=== PATIENT | female | born 1990 | race Caucasian/White ===

== ENCOUNTER 2016-11-07 22:30 | Emergency (ER) | payer OTHER ==
--- NOTE | 2016-11-07 22:50 | ED CLINICAL REPORT ---
Clinical Report - Physicians/Mid Levels [facility] [address] [place] [address] 11/07/2016 22:32 Patient: RICARDA OLIVARES Time Seen: 22:44; initial patient contact, initial documentation, patient care assumed. Arrived- By ambulance. Historian- patient. HISTORY OF PRESENT ILLNESS Chief Complaint: PRESCRIPTION REFILL REQUEST. This started about 2 days ago. No current or associated symptoms. (says she needs refill of her gabapentin, and that she takes that for psychosis problems, ran out x2 days ago). Similar symptoms previously: None. Recent medical care: Not recently seen/assessed. REVIEW OF SYSTEMS No fever, difficulty breathing, chest pain or abdominal pain. All systems otherwise negative, except as recorded above. PAST HISTORY See nurses notes. PROBLEMS: Paranoid schizophrenia. --22:42 Page-Jackson Soto R.N. ADDITIONAL SURGERIES: no known surgeries. SOCIAL HISTORY Light tobacco smoker. History of heavy IV drug use: heroin, methamphetamines. No alcohol use. No recent travel. Is a local resident. FAMILY HISTORY Negative. ADDITIONAL NOTES The nursing notes have been reviewed with agreement regarding the chief complaint, HPI, ROS, PMH and patient medications and allergies. PHYSICAL EXAM Vital Signs: 11/07/2016 22:36 BP: 136/81. HR: 98. RR: 17. O2 saturation: 100%. Temp: 98.3 F. Pain level now: 0/10. Have been reviewed as normal and appear to be correct. Appearance: Alert. No acute distress. Eyes: Pupils equal, round and reactive to light. Eyes normal inspection. Neck: Normal inspection. Neck supple. CVS: Normal heart rate and rhythm. Heart sounds normal. Pulses normal. Respiratory: No respiratory distress. Breath sounds normal. Chest nontender. Abdomen: No visible injury. Soft and nontender. Back: Normal inspection. Skin: Skin warm and dry. Normal skin color. No rash. Normal skin turgor. Extremities: Extremities exhibit normal ROM. No lower extremity edema. Neuro: Oriented X 3. No motor deficit. No sensory deficit. PROGRESS AND PROCEDURES Patient counseled in person regarding the patient's stable condition and diagnosis. Differential Diagnosis: Other possible considerations: med refill, substance abuse. Above considerations are based on history and physical exam. Differential diagnosis was discussed with patient. Disposition: Discharged home in good and unchanged condition (22:50). Condition: good and stable. CLINICAL IMPRESSION Medication refill. INSTRUCTIONS Warnings: Further evaluation is necessary (for future medication refills). It is very important to follow up with a physician. GENERAL WARNINGS: Return or contact your physician immediately if your condition worsens or changes unexpectedly, if not improving as expected, or if other problems arise. Specifically return if problem worsens. Prescription Medications: Gabapentin 300 mg capsules: take 1 orally every 8 hours. Dispense thirty (30). No refill. Follow-up: Follow up with your doctor Wednesday even if well. Call for an appointment. Summary of care provided to patient. Understanding of the discharge instructions verbalized by patient. (Electronically signed by Delmy Mccormick A.R.N.P. 11/07/2016 23:21)
--- NOTE | 2016-11-07 22:50 | ED CLINICAL REPORT ---
Clinical Report - Physicians/Mid Levels [facility] [address] [place] [address] 11/07/2016 22:32 Patient: RICARDA OLIVARES Time Seen: 22:44; initial patient contact, initial documentation, patient care assumed. Arrived- By ambulance. Historian- patient. HISTORY OF PRESENT ILLNESS Chief Complaint: PRESCRIPTION REFILL REQUEST. This started about 2 days ago. No current or associated symptoms. (says she needs refill of her gabapentin, and that she takes that for psychosis problems, ran out x2 days ago). Similar symptoms previously: None. Recent medical care: Not recently seen/assessed. REVIEW OF SYSTEMS No fever, difficulty breathing, chest pain or abdominal pain. All systems otherwise negative, except as recorded above. PAST HISTORY See nurses notes. PROBLEMS: Paranoid schizophrenia. --22:42 Page-Jackson Soto R.N. ADDITIONAL SURGERIES: no known surgeries. SOCIAL HISTORY Light tobacco smoker. History of heavy IV drug use: heroin, methamphetamines. No alcohol use. No recent travel. Is a local resident. FAMILY HISTORY Negative. ADDITIONAL NOTES The nursing notes have been reviewed with agreement regarding the chief complaint, HPI, ROS, PMH and patient medications and allergies. PHYSICAL EXAM Vital Signs: 11/07/2016 22:36 BP: 136/81. HR: 98. RR: 17. O2 saturation: 100%. Temp: 98.3 F. Pain level now: 0/10. Have been reviewed as normal and appear to be correct. Appearance: Alert. No acute distress. Eyes: Pupils equal, round and reactive to light. Eyes normal inspection. Neck: Normal inspection. Neck supple. CVS: Normal heart rate and rhythm. Heart sounds normal. Pulses normal. Respiratory: No respiratory distress. Breath sounds normal. Chest nontender. Abdomen: No visible injury. Soft and nontender. Back: Normal inspection. Skin: Skin warm and dry. Normal skin color. No rash. Normal skin turgor. Extremities: Extremities exhibit normal ROM. No lower extremity edema. Neuro: Oriented X 3. No motor deficit. No sensory deficit. PROGRESS AND PROCEDURES Patient counseled in person regarding the patient's stable condition and diagnosis. Differential Diagnosis: Other possible considerations: med refill, substance abuse. Above considerations are based on history and physical exam. Differential diagnosis was discussed with patient. Disposition: Discharged home in good and unchanged condition (22:50). Condition: good and stable. CLINICAL IMPRESSION Medication refill. INSTRUCTIONS Warnings: Further evaluation is necessary (for future medication refills). It is very important to follow up with a physician. GENERAL WARNINGS: Return or contact your physician immediately if your condition worsens or changes unexpectedly, if not improving as expected, or if other problems arise. Specifically return if problem worsens. Prescription Medications: Gabapentin 300 mg capsules: take 1 orally every 8 hours. Dispense thirty (30). No refill. Follow-up: Follow up with your doctor Wednesday even if well. Call for an appointment. Summary of care provided to patient. Understanding of the discharge instructions verbalized by patient. (Electronically signed by Delmy Mccormick A.R.N.P. 11/07/2016 23:21)
--- NOTE | 2016-11-07 22:50 | ED NURSING NOTES ---
Clinical Report - Nurses [facility] [address] [place] [address] 11/07/2016 22:32 Patient: RICARDA OLIVARES TRIAGE Triage time 22:36 Nov 07 2016. Acuity: LEVEL 4. Chief Complaint: (med refill- pt requests rx for gabapentin, has been out 2 days - [facility] Alert. No acute distress. SEPSIS SCREEN: Sepsis Screen. Negative (no infection suspected/documented). FRANCISCA COMA SCORE: [place] Coma Scale: 15- eyes open spontaneously (4); best verbal response- oriented x 4 (5); best motor response- obeys commands (6). --22:42 Jackson Mathis R.N. 22:36 11/07/16. BP: 136/81. HR: 98. RR: 17. O2 saturation: 100%. Temp: 98.3 F. Pain level now: 0/10. --22:42 Jackson Mathis R.N. Weight: 81.6 kg stated. Height/Length: 64 inches Per Patient. BMI: 30.9. --22:36 Jackson Mathis R.N. Medications Gabapentin Oral. --22:41 Jackson Mathis R.N. Allergies None. --22:41 Jackson Mathis R.N. Medication/allergy information source: the patient. --22:42 Jackson Mathis R.N. History Arrived by private vehicle. Historian: patient. This started just prior to arrival. Treatment ESTATE PLANNING ATTORNEY: None. See EMS report. PAST MEDICAL HX: Immunizations: up-to-date. SOCIAL HX: Smoker- current status unknown (cigarette). Occasional alcohol use. History of drug use: heroin, methamphetamines. Recently used drugs just prior to arrival. Under influence in ED. No infectious disease exposure. ABUSE ASSESSMENT: No report of abuse. SELF HARM ASSESSMENT: A self harm assessment was performed. The patient answered "no" to the question "Do you have thoughts of harming or killing yourself?", "Are you here because you tried to hurt yourself?" and "Do you have any dangerous items in your possession?". FALL RISK ASSESSMENT: Fall risk assessment completed. No fall risk identified. NUTRITIONAL RISK ASSESSMENT: The nutritional risk assessment revealed no deficiencies. FUNCTIONAL ASSESSMENT: Functional assessment: no impairments noted. LEARNING NEEDS ASSESSMENT: The learning needs assessment revealed no barriers. SKIN INTEGRITY ASSESSMENT: Skin integrity risk assessment completed. No skin integrity risk identified. --22:42 Jackson Mathis R.N. PROBLEMS: Paranoid schizophrenia. --22:42 Jackson Mathis R.N. ADDITIONAL SURGERIES: no known surgeries. Interventions ID band on patient. To treatment room. --22:42 Jackson Mathis R.N. PHYSICAL ASSESSMENT Patient gowned. GENERAL / NEURO / PSYCH: Alert. Oriented X 4. Appears in no acute distress. Appears anxious. HEENT: Pupils equal, round and reactive to light. No facial asymmetry noted. RESPIRATORY: Respirations not labored. CVS: Capillary refill less than 2 seconds. GI / : Abdomen soft and nontender. SKIN: Skin intact. Skin is warm and dry. Normal skin turgor. --22:42 Jackson Mathis R.N. NURSING PROGRESS NOTES Call light placed in reach. Side rails up x 1. Bed placed in lowest position. Brakes of bed on. Patient ready for evaluation- chart flagged. Patient waiting for evaluation. --22:43 Jackson Mathis R.N. DISPOSITION / DISCHARGE No learning barriers present. Discharge instructions provided and reviewed with the patient. Reviewed medication(s) side effects, precautions, dosing and course information. Prescription(s) given to the patient. Patient verbalized understanding. Written instructions provided in Filipino. The patient was discharged by the nurse practitioner. She was discharged home and accompanied by spouse. She left the Emergency Department ambulatory. --23:15 Kera Freedman 23:13 11/07/16. BP: deferred. HR: deferred. RR: deferred. O2 saturation: deferred. Temp: deferred. Pain level now deferred. --23:15 Kera Freedman. Locked/Released at 11/07/2016 23:40 by Jackson Mathis R.N.
--- NOTE | 2016-11-07 22:50 | ED NURSING NOTES ---
Clinical Report - Nurses [facility] [address] [place] [address] 11/07/2016 22:32 Patient: RICARDA OLIVARES TRIAGE Triage time 22:36 Nov 07 2016. Acuity: LEVEL 4. Chief Complaint: (med refill- pt requests rx for gabapentin, has been out 2 days - [facility] Alert. No acute distress. SEPSIS SCREEN: Sepsis Screen. Negative (no infection suspected/documented). FRANCISCA COMA SCORE: [place] Coma Scale: 15- eyes open spontaneously (4); best verbal response- oriented x 4 (5); best motor response- obeys commands (6). --22:42 Jackson Mathis R.N. 22:36 11/07/16. BP: 136/81. HR: 98. RR: 17. O2 saturation: 100%. Temp: 98.3 F. Pain level now: 0/10. --22:42 Jackson Mathis R.N. Weight: 81.6 kg stated. Height/Length: 64 inches Per Patient. BMI: 30.9. --22:36 Jackson Mathis R.N. Medications Gabapentin Oral. --22:41 Jackson Mathis R.N. Allergies None. --22:41 Jackson Mathis R.N. Medication/allergy information source: the patient. --22:42 Jackson Mathis R.N. History Arrived by private vehicle. Historian: patient. This started just prior to arrival. Treatment DIRECTIONAL DRILLER: None. See EMS report. PAST MEDICAL HX: Immunizations: up-to-date. SOCIAL HX: Smoker- current status unknown (cigarette). Occasional alcohol use. History of drug use: heroin, methamphetamines. Recently used drugs just prior to arrival. Under influence in ED. No infectious disease exposure. ABUSE ASSESSMENT: No report of abuse. SELF HARM ASSESSMENT: A self harm assessment was performed. The patient answered "no" to the question "Do you have thoughts of harming or killing yourself?", "Are you here because you tried to hurt yourself?" and "Do you have any dangerous items in your possession?". FALL RISK ASSESSMENT: Fall risk assessment completed. No fall risk identified. NUTRITIONAL RISK ASSESSMENT: The nutritional risk assessment revealed no deficiencies. FUNCTIONAL ASSESSMENT: Functional assessment: no impairments noted. LEARNING NEEDS ASSESSMENT: The learning needs assessment revealed no barriers. SKIN INTEGRITY ASSESSMENT: Skin integrity risk assessment completed. No skin integrity risk identified. --22:42 Jackson Mathis R.N. PROBLEMS: Paranoid schizophrenia. --22:42 Jackson Mathis R.N. ADDITIONAL SURGERIES: no known surgeries. Interventions ID band on patient. To treatment room. --22:42 Jackson Mathis R.N. PHYSICAL ASSESSMENT Patient gowned. GENERAL / NEURO / PSYCH: Alert. Oriented X 4. Appears in no acute distress. Appears anxious. HEENT: Pupils equal, round and reactive to light. No facial asymmetry noted. RESPIRATORY: Respirations not labored. CVS: Capillary refill less than 2 seconds. GI / : Abdomen soft and nontender. SKIN: Skin intact. Skin is warm and dry. Normal skin turgor. --22:42 Jackson Mathis R.N. NURSING PROGRESS NOTES Call light placed in reach. Side rails up x 1. Bed placed in lowest position. Brakes of bed on. Patient ready for evaluation- chart flagged. Patient waiting for evaluation. --22:43 Jackson Mathis R.N. DISPOSITION / DISCHARGE No learning barriers present. Discharge instructions provided and reviewed with the patient. Reviewed medication(s) side effects, precautions, dosing and course information. Prescription(s) given to the patient. Patient verbalized understanding. Written instructions provided in Slovak. The patient was discharged by the nurse practitioner. She was discharged home and accompanied by spouse. She left the Emergency Department ambulatory. --23:15 Kera Freedman 23:13 11/07/16. BP: deferred. HR: deferred. RR: deferred. O2 saturation: deferred. Temp: deferred. Pain level now deferred. --23:15 Kera Freedman. Locked/Released at 11/07/2016 23:40 by Jackson Mathis R.N.
--- NOTE | 2016-11-07 23:40 | ED MED RECONCILIATION SUMMARY ---
Patient: RICARDA OLIVARES Medication Reconciliation Report [facility] VisitID: [id number] [address] [place] [address] 26y, F Registration Date/Time: 11/07/2016 Weight: 81.6 kg Height/Length: 64 in. BMI: 30.9 ALLERGIES: None The patient's Home Medications are listed below: THE FOLLOWING MEDICATIONS NEED TO BE RECONCILED: Gabapentin Oral The source(s) of the original Home Medication information: patient The following Medications were given to the patient in the Emergency Department: None. The following Medications were prescribed to the patient: Gabapentin 300 mg capsules: take 1 orally every 8 hours. Dispense thirty (30). No refill. -- Delmy Mccormick A.R.N.P.
--- NOTE | 2016-11-07 23:40 | ED DISCHARGE INSTRUCTIONS ---
Patient: RICARDA OLIVARES General Instructions [facility] VisitID: [id number] [place] [address] 26y, F Registration Date/Time: 11/07/2016 Medication refill. INSTRUCTIONS Warnings: Further evaluation is necessary (for future medication refills). It is very important to follow up with a physician. GENERAL WARNINGS: Return or contact your physician immediately if your condition worsens or changes unexpectedly, if not improving as expected, or if other problems arise. Specifically return if problem worsens. Prescription Medications: Gabapentin 300 mg capsules: take 1 orally every 8 hours. Dispense thirty (30). No refill. Follow-up: Follow up with your doctor Wednesday even if well. Call for an appointment. Summary of care provided to patient. Understanding of the discharge instructions verbalized by patient. ADDITIONAL INFORMATION Gabapentin Oral tablet What is this medicine? GABAPENTIN (GA ba pen tin) is used to control partial seizures in adults with epilepsy. It is also used to treat certain types of nerve pain. How should I use this medicine? Take this medicine by mouth. Swallow it with a drink of water. Follow the directions on the prescription label. If this medicine upsets your stomach, take it with food or milk. Take your medicine at regular intervals. Do not take it more often than directed. If you are directed to break the 600 or 800 mg tablets in half as part of your dose, the extra half tablet should be used for the next dose. If you have not used the extra half tablet within 3 days, it should be thrown away. A special MedGuide will be given to you by the pharmacist with each prescription and refill. Be sure to read this information carefully each time. Talk to your store team member regarding the use of this medicine in children. Special care may be needed. What side effects may I notice from receiving this medicine? Side effects that you should report to your doctor or health reservoir caretaker as soon as possible: allergic reactions like skin rash, itching or hives, swelling of the face, lips, or tongue worsening of mood, thoughts or actions of suicide or dying Side effects that usually do not require medical attention (report to your doctor or health reservoir caretaker if they continue or are bothersome): constipation difficulty walking or controlling muscle movements dizziness nausea slurred speech tiredness tremors weight gain What may interact with this medicine? Do not take this medicine with any of the following medications: other gabapentin products This medicine may also interact with the following medications: alcohol antacids antihistamines for allergy, cough and cold certain medicines for anxiety or sleep certain medicines for depression or psychotic disturbances homatropine; hydrocodone naproxen narcotic medicines (opiates) for pain phenothiazines like chlorpromazine, mesoridazine, prochlorperazine, thioridazine What if I miss a dose? If you miss a dose, take it as soon as you can. If it is almost time for your next dose, take only that dose. Do not take double or extra doses. Where should I keep my medicine? Keep out of reach of children. Store at room temperature between 15 and 30 degrees C (59 and 86 degrees F). Throw away any unused medicine after the expiration date. What should I tell my health care provider before I take this medicine? They need to know if you have any of these conditions: kidney disease suicidal thoughts, plans, or attempt; a previous suicide attempt by you or a family member an unusual or allergic reaction to gabapentin, other medicines, foods, dyes, or preservatives or trying to get breast-feeding What should I watch for while using this medicine? Visit your doctor or health reservoir caretaker for regular checks on your progress. You may want to keep a record at home of how you feel your condition is responding to treatment. You may want to share this information with your doctor or health reservoir caretaker at each visit. You should contact your doctor or health reservoir caretaker if your seizures get worse or if you have any new types of seizures. Do not stop taking this medicine or any of your seizure medicines unless instructed by your doctor or health reservoir caretaker. Stopping your medicine suddenly can increase your seizures or their severity. Wear a medical identification bracelet or chain if you are taking this medicine for seizures, and carry a card that lists all your medications. You may get drowsy, dizzy, or have blurred vision. Do not drive, use machinery, or do anything that needs mental alertness until you know how this medicine affects you. To reduce dizzy or fainting spells, do not sit or stand up quickly, especially if you are an older patient. Alcohol can increase drowsiness and dizziness. Avoid alcoholic drinks. Your mouth may get dry. Chewing sugarless gum or sucking hard candy, and drinking plenty of water will help. The use of this medicine may increase the chance of suicidal thoughts or actions. Pay special attention to how you are responding while on this medicine. Any worsening of mood, or thoughts of suicide or dying should be reported to your health reservoir caretaker right away. Women who become while using this medicine may enroll in the [place] Drug Registry by calling . This registry collects information about the safety of antiepileptic drug use during . You have been given the following additional information: Gabapentin Oral tablet (Electronically signed by Delmy Mccormick A.R.N.P. 11/07/2016 23:21)
--- NOTE | 2016-11-07 23:40 | ED MAR SUMMARY ---
..... Medication Administration Record [facility] [address] [place], [place] [id number] Patient: RICARDA OLIVARES Visit ID: [id number] 26y, F Weight: 81.6 kg Height/Length: 64 in BMI: 30.9 ALLERGIES: None
--- NOTE | 2016-11-07 23:40 | ED MED RECONCILIATION SUMMARY ---
Patient: RICARDA OLIVARES Medication Reconciliation Report [facility] VisitID: [id number] [address] [place] [address] 26y, F Registration Date/Time: 11/07/2016 Weight: 81.6 kg Height/Length: 64 in. BMI: 30.9 ALLERGIES: None The patient's Home Medications are listed below: THE FOLLOWING MEDICATIONS NEED TO BE RECONCILED: Gabapentin Oral The source(s) of the original Home Medication information: patient The following Medications were given to the patient in the Emergency Department: None. The following Medications were prescribed to the patient: Gabapentin 300 mg capsules: take 1 orally every 8 hours. Dispense thirty (30). No refill. -- Delmy Mccormick A.R.N.P.
--- NOTE | 2016-11-07 23:40 | ED MAR SUMMARY ---
..... Medication Administration Record [facility] [address] [place], [place] [id number] Patient: RICARDA OLIVARES Visit ID: [id number] 26y, F Weight: 81.6 kg Height/Length: 64 in BMI: 30.9 ALLERGIES: None
--- NOTE | 2016-11-07 23:40 | ED DISCHARGE INSTRUCTIONS ---
Patient: RICARDA OLIVARES General Instructions [facility] VisitID: [id number] [place] [address] 26y, F Registration Date/Time: 11/07/2016 Medication refill. INSTRUCTIONS Warnings: Further evaluation is necessary (for future medication refills). It is very important to follow up with a physician. GENERAL WARNINGS: Return or contact your physician immediately if your condition worsens or changes unexpectedly, if not improving as expected, or if other problems arise. Specifically return if problem worsens. Prescription Medications: Gabapentin 300 mg capsules: take 1 orally every 8 hours. Dispense thirty (30). No refill. Follow-up: Follow up with your doctor Wednesday even if well. Call for an appointment. Summary of care provided to patient. Understanding of the discharge instructions verbalized by patient. ADDITIONAL INFORMATION Gabapentin Oral tablet What is this medicine? GABAPENTIN (GA ba pen tin) is used to control partial seizures in adults with epilepsy. It is also used to treat certain types of nerve pain. How should I use this medicine? Take this medicine by mouth. Swallow it with a drink of water. Follow the directions on the prescription label. If this medicine upsets your stomach, take it with food or milk. Take your medicine at regular intervals. Do not take it more often than directed. If you are directed to break the 600 or 800 mg tablets in half as part of your dose, the extra half tablet should be used for the next dose. If you have not used the extra half tablet within 3 days, it should be thrown away. A special MedGuide will be given to you by the pharmacist with each prescription and refill. Be sure to read this information carefully each time. Talk to your crinkling machine operator regarding the use of this medicine in children. Special care may be needed. What side effects may I notice from receiving this medicine? Side effects that you should report to your doctor or health neurocritical care physician as soon as possible: allergic reactions like skin rash, itching or hives, swelling of the face, lips, or tongue worsening of mood, thoughts or actions of suicide or dying Side effects that usually do not require medical attention (report to your doctor or health neurocritical care physician if they continue or are bothersome): constipation difficulty walking or controlling muscle movements dizziness nausea slurred speech tiredness tremors weight gain What may interact with this medicine? Do not take this medicine with any of the following medications: other gabapentin products This medicine may also interact with the following medications: alcohol antacids antihistamines for allergy, cough and cold certain medicines for anxiety or sleep certain medicines for depression or psychotic disturbances homatropine; hydrocodone naproxen narcotic medicines (opiates) for pain phenothiazines like chlorpromazine, mesoridazine, prochlorperazine, thioridazine What if I miss a dose? If you miss a dose, take it as soon as you can. If it is almost time for your next dose, take only that dose. Do not take double or extra doses. Where should I keep my medicine? Keep out of reach of children. Store at room temperature between 15 and 30 degrees C (59 and 86 degrees F). Throw away any unused medicine after the expiration date. What should I tell my health care provider before I take this medicine? They need to know if you have any of these conditions: kidney disease suicidal thoughts, plans, or attempt; a previous suicide attempt by you or a family member an unusual or allergic reaction to gabapentin, other medicines, foods, dyes, or preservatives or trying to get breast-feeding What should I watch for while using this medicine? Visit your doctor or health neurocritical care physician for regular checks on your progress. You may want to keep a record at home of how you feel your condition is responding to treatment. You may want to share this information with your doctor or health neurocritical care physician at each visit. You should contact your doctor or health neurocritical care physician if your seizures get worse or if you have any new types of seizures. Do not stop taking this medicine or any of your seizure medicines unless instructed by your doctor or health neurocritical care physician. Stopping your medicine suddenly can increase your seizures or their severity. Wear a medical identification bracelet or chain if you are taking this medicine for seizures, and carry a card that lists all your medications. You may get drowsy, dizzy, or have blurred vision. Do not drive, use machinery, or do anything that needs mental alertness until you know how this medicine affects you. To reduce dizzy or fainting spells, do not sit or stand up quickly, especially if you are an older patient. Alcohol can increase drowsiness and dizziness. Avoid alcoholic drinks. Your mouth may get dry. Chewing sugarless gum or sucking hard candy, and drinking plenty of water will help. The use of this medicine may increase the chance of suicidal thoughts or actions. Pay special attention to how you are responding while on this medicine. Any worsening of mood, or thoughts of suicide or dying should be reported to your health neurocritical care physician right away. Women who become while using this medicine may enroll in the [place]pileptic Drug Registry by calling . This registry collects information about the safety of antiepileptic drug use during . You have been given the following additional information: Gabapentin Oral tablet (Electronically signed by Delmy Mccormick A.R.N.P. 11/07/2016 23:21)
== END 2016-11-07 23:11 | disposition home or self-care (01) ==
LOC: ED SRH 22:30
DX: Z76.0 Encounter for issue of repeat prescription (principal); F20.0 Paranoid schizophrenia; F20.9 Schizophrenia, unspecified; Z72.0 Tobacco use

== ENCOUNTER 2016-11-08 01:11 | Emergency (ER) | payer OTHER ==
--- NOTE | 2016-11-08 01:31 | ED CLINICAL REPORT ---
Clinical Report - Physicians/Mid Levels [facility] [address] [place] [address] 11/08/2016 1:12 Patient: RICARDA OLIVARES Time Seen: 01:22. Arrived- By private vehicle. Historian- patient. HISTORY OF PRESENT ILLNESS Chief Complaint: PRESCRIPTION REFILL REQUEST. At its maximum, severity described as moderate. When seen in the E.D., severity described as moderate. Modifying factors. Not worsened by anything. Not relieved by anything. This started yesterday and is still present. It was gradual in onset and has been waxing/waning. The patient has had fatigue. (Pt states she put her purse down at the side of the road and it "disappeared". She states that she lost her Rx.). Similar symptoms previously: Recent medical care: The patient was seen recently at this facility in the emergency department. REVIEW OF SYSTEMS No fever, difficulty breathing, nausea, vomiting or difficulty with urination. No abnormal bleeding or back pain. No difficulty with ambulation. PAST HISTORY See nurses notes. PROBLEMS: Paranoid schizophrenia. SURGERIES: Cholecystectomy. Medications: Depakote Oral. ZyPREXA Oral. Gabapentin Oral. Allergies: None. SOCIAL HISTORY Smoker- current status unknown. History of IV drug use: heroin, methamphetamines. No alcohol use. ADDITIONAL NOTES The nursing notes have been reviewed. PHYSICAL EXAM Vital Signs: 11/08/2016 01:19 BP: 135/80. HR: 93. RR: 20. O2 saturation: 98%. Temp: 98.6 F. Pain level now: 0/10. Appearance: Alert. No acute distress. Eyes: Eyes normal inspection. No scleral icterus or pale conjunctivae. ENT: Pharynx normal. No pharyngeal erythema or tonsillar exudate. The mucous membranes are not dry. Neck: Normal inspection. Neck supple. CVS: Normal heart rate and rhythm. Heart sounds normal. Pulses normal. Respiratory: No respiratory distress. Breath sounds normal. Abdomen: No visible injury. Soft and nontender. No mass. Back: Normal inspection. Skin: Skin warm and dry. Normal skin color. Normal skin turgor. Extremities: Extremities exhibit normal ROM. No lower extremity edema. Neuro: Oriented X 3. No motor deficit. LABS, X-RAYS, AND EKG Pulse Oximetry: 11/08/2016 01:19 O2 saturation: 98%. (FIO2 - room air). Interpretation: normal. PROGRESS AND PROCEDURES Course of Care: Zyprexa 5 mg PO given. Pt states she put her purse down at the side of the road and it "disappeared". She states that she lost her Rx. Patient/family counseled. Old ED records reviewed. Disposition: Discharged. Condition: stable. CLINICAL IMPRESSION Chronic paranoid schizophrenia with exacerbation. INSTRUCTIONS Drink plenty of fluids. Warnings: Further evaluation is necessary. It is very important to follow up with a physician. SEDATIVE MEDICATION: You were given sedative medication during your visit. Do not drive or operate dangerous machinery. GENERAL WARNINGS: Return or contact your physician immediately if your condition worsens or changes unexpectedly, if not improving as expected, or if other problems arise. Your Current Medications: CONTINUE TAKING THE FOLLOWING MEDICATIONS: Depakote Oral. Gabapentin Oral. ZyPREXA Oral. Prescription Medications: Zyprexa 10 mg: take 1 tablet orally every day. Dispense ten (10). No refills. Substitution is permissible Gabapentin 300 mg capsules: take 1 orally every 8 hours. Dispense twenty (20). No refill. Follow-up: Follow up with your doctor tomorrow. (Electronically signed by Kirk Arteaga DO 11/08/2016 3:11)
--- NOTE | 2016-11-08 01:32 | ED NURSING NOTES ---
Clinical Report - Nurses [facility] [address] [place] [address] 11/08/2016 1:12 Patient: RICARDA OLIVARES TRIAGE Triage time 01:Nov 08 2016. Acuity: LEVEL 3. Chief Complaint: (Revist, lost script). SEPSIS SCREEN: Sepsis Screen: negative. Negative (no infection suspected/documented). GUILLE COMA SCORE: Guille Coma Scale: 15- eyes open spontaneously (4); best verbal response- oriented x 4 (5); best motor response- obeys commands (6). --01:23 Kera Freedman 01:19 11/08/16. BP: 135/80. HR: 93. RR: 20. O2 saturation: 98% on room air. Temp: 98.6 F (oral). Pain level now: 0/10. --01:23 Kera Freedman. Weight: 81.6 kg stated. Height/Length: 64 inches Per Patient. BMI: 30.9. --01:21 Kera Freedman. Medications Gabapentin Oral. --01:22 Kera Freedman ZyPREXA Oral. --01:22 Kera Freedman Depakote Oral. --01:22 Kera Freedman. Allergies None. --01:22 Kera Freedman. Medication/allergy information source: the patient. --01:23 Kera Freedman. History Arrived by private vehicle. Historian: patient. Unaccompanied. This started just prior to arrival. ( Patient was seen here in the ER by Delmy Mccormick. Patient was given medication script and discharged. She returns stating she lost her script, " I dropped my purse". Patient stating in triage that she wants writing RN to give her a ride to the [facility]. Patient reports she needs medications, a place to stay and sleep. Patient reports she is sleep deprived and from [place]. When asked how patient arrived to [place] she states she cannot remember). PAST MEDICAL HX: Immunizations: up-to-date. Last normal menstrual period- 3 days ago. SOCIAL HX: Heavy tobacco smoker- 1 pack per day. History of drug use: heroin, methamphetamines. No alcohol use. No infectious disease exposure. ABUSE ASSESSMENT: No report of abuse. FALL RISK ASSESSMENT: Fall risk assessment completed. No fall risk identified. NUTRITIONAL RISK ASSESSMENT: The nutritional risk assessment revealed no deficiencies. FUNCTIONAL ASSESSMENT: Functional assessment: no impairments noted. LEARNING NEEDS ASSESSMENT: The learning needs assessment revealed no barriers. SKIN INTEGRITY ASSESSMENT: Skin integrity risk assessment completed. No skin integrity risk identified. --: Kera Freedman SELF HARM ASSESSMENT: A self harm assessment was performed. The patient answered "no" to the question "Have you recently felt down, depressed, or hopeless?", "Have you noticed less interest or pleasure in doing things?", "Do you have thoughts of harming or killing yourself?", "Are you here because you tried to hurt yourself?", "Have you ever tried to hurt yourself before today?", "Have you recently had thoughts about harming or killing others?" and "Do you have any dangerous items in your possession?". --: Kera Freedman. PROBLEMS: Medication Refill. Paranoid schizophrenia. --: Kera Freedman. ADDITIONAL SURGERIES: Cholecystectomy. --: Kera Freedman. Interventions ID band on patient. To treatment room. --: Kera Freedman. PHYSICAL ASSESSMENT GENERAL / NEURO / PSYCH: Alert. Oriented X 4. Appears in no acute distress. Mood/affect abnormal (anxious and bizarre). HEENT: No facial asymmetry noted. Mucous membranes are pink. RESPIRATORY: Respirations not labored. CVS: Normal sinus rhythm noted. GI / : Abdomen soft and nontender. SKIN: Skin intact. Skin is warm and dry. Normal skin turgor. --: Kera Freedman. NURSING PROGRESS NOTES Reassurance given to the patient. Two patient identifiers checked. Call light placed in reach. Side rails up x 1. Bed placed in lowest position. Brakes of bed on. Patient ready for evaluation- chart flagged and ED physician notified. --: Kera Freedman 01:40 11/08/2016 LEYDI ZYDIS ODT (OLANZapine) PO Oral Disintegrating Tablets 5 mg given. Allergies verified, confirmed 5 rights and sedative warning given to the patient. --01:55 Kera Freedman. DISPOSITION / DISCHARGE Condition at departure: stable. The goals identified in the patient's plan of care were met. Ability to learn limited by poor cooperation. Discharge instructions provided and reviewed with the patient. Reviewed medication(s) side effects, precautions, dosing and course information. Prescription(s) given to the patient. Reviewed need for increased fluid intake. Patient verbalized understanding. Written instructions provided in Wolof. ( Follow up with your PCP tomorrow. Resource list given to patient.). The patient was discharged by the physician. She was discharged home and unaccompanied at time of discharge. She left the Emergency Department ambulatory. ( Patient had left unit prior to receiving complete discharge instructions as well as medication. [facility]. Patient given medication, PO fluids and a resource list for shelters as well as discharge instructions.). FALL RISK ASSESSMENT: Fall risk assessment completed. No fall risk identified. --:55 Kera Freedman 01:40 11/08/16. BP: deferred. HR: deferred. RR: deferred. O2 saturation: deferred. Temp: deferred. Pain level now deferred. --:55 Kera Freedman. Locked/Released at 11/08/2016 1:57 by Kera Freedman,
--- NOTE | 2016-11-08 01:32 | ED ORDER SUMMARY ---
..... Patient: RICARDA OLIVARES OrderSheet [facility] VisitID: [id number] [address] [place] [address] 26y, F Registration Date/Time: 11/08/2016 ORDER SHEET Weight: 81.6 kg (stated) Allergies: None GENERAL ORDERS: MEDICATION ORDERS: ZyPREXA Zydis ODT PO 5 mg (NOW) (01:28 11/08/2016 Rona WATSON) (Ack 1:35 HSoule) (Cancelled: Patient Left1:39 HSoule) ZyPREXA Zydis ODT PO 5 mg (NOW) (01:44 11/08/2016 Rona WATSON) (1:55 HSoule) IV FLUIDS: ORDER SHEET NOTES: [Electronically signed by Kera Freedman (01:57 11/08/2016)] [Electronically signed by Kirk Arteaga DO (03:11 11/08/2016)] [Electronically locked/signed by Kera Freedman (01:57 11/08/2016)]
--- NOTE | 2016-11-08 01:32 | ED ORDER SUMMARY ---
..... Patient: RICARDA OLIVARES OrderSheet [facility] VisitID: [id number] [address] [place] [address] 26y, F Registration Date/Time: 11/08/2016 ORDER SHEET Weight: 81.6 kg (stated) Allergies: None GENERAL ORDERS: MEDICATION ORDERS: ZyPREXA Zydis ODT PO 5 mg (NOW) (01:28 11/08/2016 Rona WATSON) (Ack 1:35 HSoule) (Cancelled: Patient Left1:39 HSoule) ZyPREXA Zydis ODT PO 5 mg (NOW) (01:44 11/08/2016 Rona WATSON) (1:55 HSoule) IV FLUIDS: ORDER SHEET NOTES: [Electronically signed by Kera Freedman (01:57 11/08/2016)] [Electronically signed by Kirk Arteaga DO (03:11 11/08/2016)] [Electronically locked/signed by Kera Freedman (01:57 11/08/2016)]
--- NOTE | 2016-11-08 01:32 | ED NURSING NOTES ---
Clinical Report - Nurses [facility] [address] [place] [address] 11/08/2016 1:12 Patient: RICARDA OLIVARES TRIAGE Triage time 01:Nov 08 2016. Acuity: LEVEL 3. Chief Complaint: (Revist, lost script). SEPSIS SCREEN: Sepsis Screen: negative. Negative (no infection suspected/documented). GUILLE COMA SCORE: Guille Coma Scale: 15- eyes open spontaneously (4); best verbal response- oriented x 4 (5); best motor response- obeys commands (6). --01:23 Kera Freedman 01:19 11/08/16. BP: 135/80. HR: 93. RR: 20. O2 saturation: 98% on room air. Temp: 98.6 F (oral). Pain level now: 0/10. --01:23 Kera Freedman. Weight: 81.6 kg stated. Height/Length: 64 inches Per Patient. BMI: 30.9. --01:21 Kera Freedman. Medications Gabapentin Oral. --01:22 Kera Freedman ZyPREXA Oral. --01:22 Kera Freedman Depakote Oral. --01:22 Kera Freedman. Allergies None. --01:22 Kera Freedman. Medication/allergy information source: the patient. --01:23 Kera Freedman. History Arrived by private vehicle. Historian: patient. Unaccompanied. This started just prior to arrival. ( Patient was seen here in the ER by Delmy Mccormick. Patient was given medication script and discharged. She returns stating she lost her script, " I dropped my purse". Patient stating in triage that she wants writing RN to give her a ride to the [place] [facility]. Patient reports she needs medications, a place to stay and sleep. Patient reports she is sleep deprived and from [place]. When asked how patient arrived to [place] she states she cannot remember). PAST MEDICAL HX: Immunizations: up-to-date. Last normal menstrual period- 3 days ago. SOCIAL HX: Heavy tobacco smoker- 1 pack per day. History of drug use: heroin, methamphetamines. No alcohol use. No infectious disease exposure. ABUSE ASSESSMENT: No report of abuse. FALL RISK ASSESSMENT: Fall risk assessment completed. No fall risk identified. NUTRITIONAL RISK ASSESSMENT: The nutritional risk assessment revealed no deficiencies. FUNCTIONAL ASSESSMENT: Functional assessment: no impairments noted. LEARNING NEEDS ASSESSMENT: The learning needs assessment revealed no barriers. SKIN INTEGRITY ASSESSMENT: Skin integrity risk assessment completed. No skin integrity risk identified. --: Kera Freedman SELF HARM ASSESSMENT: A self harm assessment was performed. The patient answered "no" to the question "Have you recently felt down, depressed, or hopeless?", "Have you noticed less interest or pleasure in doing things?", "Do you have thoughts of harming or killing yourself?", "Are you here because you tried to hurt yourself?", "Have you ever tried to hurt yourself before today?", "Have you recently had thoughts about harming or killing others?" and "Do you have any dangerous items in your possession?". --: Kera Freedman. PROBLEMS: Medication Refill. Paranoid schizophrenia. --: Kera Freedman. ADDITIONAL SURGERIES: Cholecystectomy. --: Kera Freedman. Interventions ID band on patient. To treatment room. --: Kera Freedman. PHYSICAL ASSESSMENT GENERAL / NEURO / PSYCH: Alert. Oriented X 4. Appears in no acute distress. Mood/affect abnormal (anxious and bizarre). HEENT: No facial asymmetry noted. Mucous membranes are pink. RESPIRATORY: Respirations not labored. CVS: Normal sinus rhythm noted. GI / : Abdomen soft and nontender. SKIN: Skin intact. Skin is warm and dry. Normal skin turgor. --: Kera Freedman. NURSING PROGRESS NOTES Reassurance given to the patient. Two patient identifiers checked. Call light placed in reach. Side rails up x 1. Bed placed in lowest position. Brakes of bed on. Patient ready for evaluation- chart flagged and ED physician notified. --: Kera Freedman 01:40 11/08/2016 LEYDI ZYDIS ODT (OLANZapine) PO Oral Disintegrating Tablets 5 mg given. Allergies verified, confirmed 5 rights and sedative warning given to the patient. --01:55 Kera Freedman. DISPOSITION / DISCHARGE Condition at departure: stable. The goals identified in the patient's plan of care were met. Ability to learn limited by poor cooperation. Discharge instructions provided and reviewed with the patient. Reviewed medication(s) side effects, precautions, dosing and course information. Prescription(s) given to the patient. Reviewed need for increased fluid intake. Patient verbalized understanding. Written instructions provided in Bengali. ( Follow up with your PCP tomorrow. Resource list given to patient.). The patient was discharged by the physician. She was discharged home and unaccompanied at time of discharge. She left the Emergency Department ambulatory. ( Patient had left unit prior to receiving complete discharge instructions as well as medication. [facility]. Patient given medication, PO fluids and a resource list for shelters as well as discharge instructions.). FALL RISK ASSESSMENT: Fall risk assessment completed. No fall risk identified. --:55 Kera Freedman 01:40 11/08/16. BP: deferred. HR: deferred. RR: deferred. O2 saturation: deferred. Temp: deferred. Pain level now deferred. --:55 Kera Freedman. Locked/Released at 11/08/2016 1:57 by Kera Freedman,
--- NOTE | 2016-11-08 03:11 | ED DISCHARGE INSTRUCTIONS ---
Patient: RICARDA OLIVARES General Instructions [facility] VisitID: [id number] [place] [address] 26y, F Registration Date/Time: 11/08/2016 Chronic paranoid schizophrenia with exacerbation. INSTRUCTIONS Drink plenty of fluids. Warnings: Further evaluation is necessary. It is very important to follow up with a physician. SEDATIVE MEDICATION: You were given sedative medication during your visit. Do not drive or operate dangerous machinery. GENERAL WARNINGS: Return or contact your physician immediately if your condition worsens or changes unexpectedly, if not improving as expected, or if other problems arise. Your Current Medications: CONTINUE TAKING THE FOLLOWING MEDICATIONS: Depakote Oral. Gabapentin Oral. ZyPREXA Oral. Prescription Medications: Zyprexa 10 mg: take 1 tablet orally every day. Dispense ten (10). No refills. Substitution is permissible Gabapentin 300 mg capsules: take 1 orally every 8 hours. Dispense twenty (20). No refill. Follow-up: Follow up with your doctor tomorrow. ADDITIONAL INFORMATION Paranoid Schizophrenia You have been diagnosed with paranoid schizophrenia. Schizophrenia is a chronic, severe and disabling brain disorder. The cause of schizophrenia is not yet known. It is believed to be a result of genetic and biological factors like brain chemistry and structure. Schizophrenia does run in families and occurs in about 1% of the general population. Symptoms include: Hallucinations (seeing things or hearing voices that are not there). Delusions (false beliefs), for example you may think that others are trying to harm you when they are not. You may feel the need to protect yourself at most times. Wanting to be alone and avoiding other people. Severe anxiety, feeling angry and arguing a lot with others. Medicines and therapy can help with many of the symptoms and allow for better daily function and quality of life. These medicines take 2-4 weeks to begin working and 6-8 weeks to take full effect. It is common to feel that you are not ill and that you dont need treatment. It is important to allow friends and family help you to continue to take your medicine. Home Care: Be sure to take your medicine as directed even if you think you don't need it. Talk with your family about your feelings and thoughts. Follow Up with your doctor or therapist as advised by our staff. For more information, contact The [employer] [place] [facility] Illness [phone] www.[facility].org Get Prompt Medical Attention if any of the following occur: Feeling like your symptoms are getting worse Feeling out of control or being controlled by others Feeling like you want to harm yourself or another Unable to care for yourself Gabapentin Oral tablet What is this medicine? GABAPENTIN (GA ba pen tin) is used to control partial seizures in adults with epilepsy. It is also used to treat certain types of nerve pain. How should I use this medicine? Take this medicine by mouth. Swallow it with a drink of water. Follow the directions on the prescription label. If this medicine upsets your stomach, take it with food or milk. Take your medicine at regular intervals. Do not take it more often than directed. If you are directed to break the 600 or 800 mg tablets in half as part of your dose, the extra half tablet should be used for the next dose. If you have not used the extra half tablet within 3 days, it should be thrown away. A special MedGuide will be given to you by the pharmacist with each prescription and refill. Be sure to read this information carefully each time. Talk to your machine grainer regarding the use of this medicine in children. Special care may be needed. What side effects may I notice from receiving this medicine? Side effects that you should report to your doctor or health director career as soon as possible: allergic reactions like skin rash, itching or hives, swelling of the face, lips, or tongue worsening of mood, thoughts or actions of suicide or dying Side effects that usually do not require medical attention (report to your doctor or health director career if they continue or are bothersome): constipation difficulty walking or controlling muscle movements dizziness nausea slurred speech tiredness tremors weight gain What may interact with this medicine? Do not take this medicine with any of the following medications: other gabapentin products This medicine may also interact with the following medications: alcohol antacids antihistamines for allergy, cough and cold certain medicines for anxiety or sleep certain medicines for depression or psychotic disturbances homatropine; hydrocodone naproxen narcotic medicines (opiates) for pain phenothiazines like chlorpromazine, mesoridazine, prochlorperazine, thioridazine What if I miss a dose? If you miss a dose, take it as soon as you can. If it is almost time for your next dose, take only that dose. Do not take double or extra doses. Where should I keep my medicine? Keep out of reach of children. Store at room temperature between 15 and 30 degrees C (59 and 86 degrees F). Throw away any unused medicine after the expiration date. What should I tell my health care provider before I take this medicine? They need to know if you have any of these conditions: kidney disease suicidal thoughts, plans, or attempt; a previous suicide attempt by you or a family member an unusual or allergic reaction to gabapentin, other medicines, foods, dyes, or preservatives or trying to get breast-feeding What should I watch for while using this medicine? Visit your doctor or health director career for regular checks on your progress. You may want to keep a record at home of how you feel your condition is responding to treatment. You may want to share this information with your doctor or health director career at each visit. You should contact your doctor or health director career if your seizures get worse or if you have any new types of seizures. Do not stop taking this medicine or any of your seizure medicines unless instructed by your doctor or health director career. Stopping your medicine suddenly can increase your seizures or their severity. Wear a medical identification bracelet or chain if you are taking this medicine for seizures, and carry a card that lists all your medications. You may get drowsy, dizzy, or have blurred vision. Do not drive, use machinery, or do anything that needs mental alertness until you know how this medicine affects you. To reduce dizzy or fainting spells, do not sit or stand up quickly, especially if you are an older patient. Alcohol can increase drowsiness and dizziness. Avoid alcoholic drinks. Your mouth may get dry. Chewing sugarless gum or sucking hard candy, and drinking plenty of water will help. The use of this medicine may increase the chance of suicidal thoughts or actions. Pay special attention to how you are responding while on this medicine. Any worsening of mood, or thoughts of suicide or dying should be reported to your health director career right away. Women who become while using this medicine may enroll in the [place]iepileptic Drug Registry by calling . This registry collects information about the safety of antiepileptic drug use during . You have been given the following additional information: Schizophrenia, Paranoid Type Gabapentin Oral tablet (Electronically signed by Kirk Arteaga DO 11/08/2016 3:11)
--- NOTE | 2016-11-08 03:11 | ED MAR SUMMARY ---
..... Medication Administration Record [facility] [address] [place] [address] Patient: RICARDA OLIVARES Visit ID: [id number] 26y, F Weight: 81.6 kg Height/Length: 64 in BMI: 30.9 ALLERGIES: None Given 01:40 11/08/2016 Kera Freedman, Medication Administered: ZYPREXA ZYDIS ODT [PO] (OLANZAPINE), Dose: 5 mg Oral Disintegrating Tablets PO. Medication Ordered: ZyPREXA Zydis ODT PO 5 mg (NOW).
--- NOTE | 2016-11-08 03:11 | ED MED RECONCILIATION SUMMARY ---
Patient: RICARDA OLIVARES Medication Reconciliation Report [facility] VisitID: [id number] [address] [place] [address] 26y, F Registration Date/Time: 11/08/2016 Weight: 81.6 kg Height/Length: 64 in. BMI: 30.9 ALLERGIES: None The patient's Home Medications are listed below: CONTINUE TAKING THE FOLLOWING MEDICATIONS: Depakote Oral Gabapentin Oral ZyPREXA Oral The source(s) of the original Home Medication information: patient The following Medications were given to the patient in the Emergency Department: ZYPREXA ZYDIS ODT [PO] PO 5 mg, administered: 11/08/2016 1:40:00 AM The following Medications were prescribed to the patient: Zyprexa 10 mg: take 1 tablet orally every day. Dispense ten (10). No refills. Substitution is permissible -- Kirk Arteaga DO Gabapentin 300 mg capsules: take 1 orally every 8 hours. Dispense twenty (20). No refill. -- Kirk Arteaga DO
--- NOTE | 2016-11-08 03:11 | ED DISCHARGE INSTRUCTIONS ---
Patient: RICARDA OLIVARES General Instructions [facility] VisitID: [id number] [place] [address] 26y, F Registration Date/Time: 11/08/2016 Chronic paranoid schizophrenia with exacerbation. INSTRUCTIONS Drink plenty of fluids. Warnings: Further evaluation is necessary. It is very important to follow up with a physician. SEDATIVE MEDICATION: You were given sedative medication during your visit. Do not drive or operate dangerous machinery. GENERAL WARNINGS: Return or contact your physician immediately if your condition worsens or changes unexpectedly, if not improving as expected, or if other problems arise. Your Current Medications: CONTINUE TAKING THE FOLLOWING MEDICATIONS: Depakote Oral. Gabapentin Oral. ZyPREXA Oral. Prescription Medications: Zyprexa 10 mg: take 1 tablet orally every day. Dispense ten (10). No refills. Substitution is permissible Gabapentin 300 mg capsules: take 1 orally every 8 hours. Dispense twenty (20). No refill. Follow-up: Follow up with your doctor tomorrow. ADDITIONAL INFORMATION Paranoid Schizophrenia You have been diagnosed with paranoid schizophrenia. Schizophrenia is a chronic, severe and disabling brain disorder. The cause of schizophrenia is not yet known. It is believed to be a result of genetic and biological factors like brain chemistry and structure. Schizophrenia does run in families and occurs in about 1% of the general population. Symptoms include: Hallucinations (seeing things or hearing voices that are not there). Delusions (false beliefs), for example you may think that others are trying to harm you when they are not. You may feel the need to protect yourself at most times. Wanting to be alone and avoiding other people. Severe anxiety, feeling angry and arguing a lot with others. Medicines and therapy can help with many of the symptoms and allow for better daily function and quality of life. These medicines take 2-4 weeks to begin working and 6-8 weeks to take full effect. It is common to feel that you are not ill and that you dont need treatment. It is important to allow friends and family help you to continue to take your medicine. Home Care: Be sure to take your medicine as directed even if you think you don't need it. Talk with your family about your feelings and thoughts. Follow Up with your doctor or therapist as advised by our staff. For more information, contact The National [place] on Mental Illness [phone] www.[facility].org Get Prompt Medical Attention if any of the following occur: Feeling like your symptoms are getting worse Feeling out of control or being controlled by others Feeling like you want to harm yourself or another Unable to care for yourself Gabapentin Oral tablet What is this medicine? GABAPENTIN (GA ba pen tin) is used to control partial seizures in adults with epilepsy. It is also used to treat certain types of nerve pain. How should I use this medicine? Take this medicine by mouth. Swallow it with a drink of water. Follow the directions on the prescription label. If this medicine upsets your stomach, take it with food or milk. Take your medicine at regular intervals. Do not take it more often than directed. If you are directed to break the 600 or 800 mg tablets in half as part of your dose, the extra half tablet should be used for the next dose. If you have not used the extra half tablet within 3 days, it should be thrown away. A special MedGuide will be given to you by the pharmacist with each prescription and refill. Be sure to read this information carefully each time. Talk to your handkerchief maker regarding the use of this medicine in children. Special care may be needed. What side effects may I notice from receiving this medicine? Side effects that you should report to your doctor or health geriatric personal care aide as soon as possible: allergic reactions like skin rash, itching or hives, swelling of the face, lips, or tongue worsening of mood, thoughts or actions of suicide or dying Side effects that usually do not require medical attention (report to your doctor or health geriatric personal care aide if they continue or are bothersome): constipation difficulty walking or controlling muscle movements dizziness nausea slurred speech tiredness tremors weight gain What may interact with this medicine? Do not take this medicine with any of the following medications: other gabapentin products This medicine may also interact with the following medications: alcohol antacids antihistamines for allergy, cough and cold certain medicines for anxiety or sleep certain medicines for depression or psychotic disturbances homatropine; hydrocodone naproxen narcotic medicines (opiates) for pain phenothiazines like chlorpromazine, mesoridazine, prochlorperazine, thioridazine What if I miss a dose? If you miss a dose, take it as soon as you can. If it is almost time for your next dose, take only that dose. Do not take double or extra doses. Where should I keep my medicine? Keep out of reach of children. Store at room temperature between 15 and 30 degrees C (59 and 86 degrees F). Throw away any unused medicine after the expiration date. What should I tell my health care provider before I take this medicine? They need to know if you have any of these conditions: kidney disease suicidal thoughts, plans, or attempt; a previous suicide attempt by you or a family member an unusual or allergic reaction to gabapentin, other medicines, foods, dyes, or preservatives or trying to get breast-feeding What should I watch for while using this medicine? Visit your doctor or health geriatric personal care aide for regular checks on your progress. You may want to keep a record at home of how you feel your condition is responding to treatment. You may want to share this information with your doctor or health geriatric personal care aide at each visit. You should contact your doctor or health geriatric personal care aide if your seizures get worse or if you have any new types of seizures. Do not stop taking this medicine or any of your seizure medicines unless instructed by your doctor or health geriatric personal care aide. Stopping your medicine suddenly can increase your seizures or their severity. Wear a medical identification bracelet or chain if you are taking this medicine for seizures, and carry a card that lists all your medications. You may get drowsy, dizzy, or have blurred vision. Do not drive, use machinery, or do anything that needs mental alertness until you know how this medicine affects you. To reduce dizzy or fainting spells, do not sit or stand up quickly, especially if you are an older patient. Alcohol can increase drowsiness and dizziness. Avoid alcoholic drinks. Your mouth may get dry. Chewing sugarless gum or sucking hard candy, and drinking plenty of water will help. The use of this medicine may increase the chance of suicidal thoughts or actions. Pay special attention to how you are responding while on this medicine. Any worsening of mood, or thoughts of suicide or dying should be reported to your health geriatric personal care aide right away. Women who become while using this medicine may enroll in the [place] Antiepileptic Drug Registry by calling . This registry collects information about the safety of antiepileptic drug use during . You have been given the following additional information: Schizophrenia, Paranoid Type Gabapentin Oral tablet (Electronically signed by Kirk Arteaga DO 11/08/2016 3:11)
--- NOTE | 2016-11-08 03:11 | ED MED RECONCILIATION SUMMARY ---
Patient: RICARDA OLIVARES Medication Reconciliation Report [facility] VisitID: [id number] [address] [place] [address] 26y, F Registration Date/Time: 11/08/2016 Weight: 81.6 kg Height/Length: 64 in. BMI: 30.9 ALLERGIES: None The patient's Home Medications are listed below: CONTINUE TAKING THE FOLLOWING MEDICATIONS: Depakote Oral Gabapentin Oral ZyPREXA Oral The source(s) of the original Home Medication information: patient The following Medications were given to the patient in the Emergency Department: ZYPREXA ZYDIS ODT [PO] PO 5 mg, administered: 11/08/2016 1:40:00 AM The following Medications were prescribed to the patient: Zyprexa 10 mg: take 1 tablet orally every day. Dispense ten (10). No refills. Substitution is permissible -- Kirk Arteaga DO Gabapentin 300 mg capsules: take 1 orally every 8 hours. Dispense twenty (20). No refill. -- Kirk Arteaga DO
--- NOTE | 2016-11-08 03:11 | ED MAR SUMMARY ---
..... Medication Administration Record [facility] [address] [place] [address] Patient: RICARDA OLIVARES Visit ID: [id number] 26y, F Weight: 81.6 kg Height/Length: 64 in BMI: 30.9 ALLERGIES: None Given 01:40 11/08/2016 Kera Freedman, Medication Administered: ZYPREXA ZYDIS ODT [PO] (OLANZAPINE), Dose: 5 mg Oral Disintegrating Tablets PO. Medication Ordered: ZyPREXA Zydis ODT PO 5 mg (NOW).
== END 2016-11-08 01:35 | disposition home or self-care (01) ==
LOC: ED SRH 01:11
DX: F20.0 Paranoid schizophrenia (principal); Z76.0 Encounter for issue of repeat prescription; Z79.899 Other long term (current) drug therapy